=== PATIENT | male | born 1960 | race Caucasian/White ===

== ENCOUNTER 2019-07-10 08:00 | Outpatient (RCR) | payer BC | END 2019-08-22 | disposition home or self-care (01) | LOC: WSOT | DX: M79.645 Pain in left finger(s) (principal) ==

== ENCOUNTER 2021-08-28 21:28 | Emergency (ER) | payer BC ==
[~2021-08-28] VITALS: Ht 177.8 cm; Wt 113.6 kg
[2021-08-28 21:39] VITALS: TEMP 98.3
[2021-08-28 22:12] LABS: BASO % 0.4 % (0.0-2.0); EOS # 0.3 K/mm3 (0.0-0.7); GRAN # 4.5 K/mm3 (1.4-6.5); GRAN % 55.8 % (42.2-75.2); HEMATOCRIT 42.7 % (42.0-52.0); HEMOGLOBIN 14.5 g/dl (13.5-18.0); LYMPH # 2.5 K/mm3 (1.2-3.4); LYMPH % 30.7 % (20.0-51.0); MEAN CELL VOLUME 86 fl (80.0-100.0); MEAN CORPUSCULAR HEMOGLOBIN 29 pg (27-31); MEAN CORPUSCULAR HGB CONC 34 g/dl (33.0-37.0); MEAN PLATELET VOLUME 9.7 fl (7.4-10.4); MONO # 0.7 K/mm3 (0.1-0.6); MONO % 8.9 % (1.7-9.3); PLATELET COUNT 164 K/mm3 (130-400); RED BLOOD COUNT 4.97 M/mm3 (4.20-5.60); REDCELL DISTRIBUTION WIDTH-CV 12.6 % (11.5-14.5)
[2021-08-28 22:33] LABS: ALBUMIN 4.4 gm/dL (3.5-5.0); C-REACTIVE PROTEIN 0.22 mg/dL (0.00-0.50); TOTAL PROTEIN 6.9 gm/dL (6.2-8.1)
[2021-08-29 00:33] VITALS: BP 136/75; PULSE 59
== END 2021-08-29 00:33 | disposition home or self-care (01) ==
LOC: COL.ER 21:28
PROVIDERS: Emergency Medicine
DX: K42.9 Umbilical hernia without obstruction or gangrene (principal); F17.220 Nicotine dependence, chewing tobacco, uncomplicated
CPT/HCPCS: J7030; Q9967